=== PATIENT | male | born 1980 | race American Indian/Alaskan Native ===

== ENCOUNTER 2017-07-22 12:14 | Emergency (ER) | payer SELFPAY ==
[2017-07-22 12:14] VITALS: BMI 23.3
[2017-07-22 12:27] VITALS: PULSE 67; RESP 20; TEMP 98; O2SAT 97
[2017-07-22] MEDS ORDERED: Albuterol-Ipratrop 3 mg / 0.5 (3 ml) UD INH STA (12:34)
--- NOTE | 2017-07-22 12:53 | ED PDOC ---
HPI: SOB/CHF/COPD Time Seen by Provider: 07/22/17 12:15 Chief Complaint (Nursing): Shortness Of Breath Chief Complaint (Provider): Shortness Of Breath History Per: Patient History/Exam Limitations: no limitations Onset/Duration Of Symptoms: Persistent (x6 months), Worse Since (x2) Current Symptoms Are (Timing): Still Present Additional Complaint(s): 36 year old male presents to the emergency department with a complaint of shortness of breath associated with sore throat ongoing for 6 months but worsening in the last 2 days. He denied any fever or chills. Patient stated that he believes symptoms are related to his occupation due to dust exposure. PMD: none provided Past Medical History Reviewed: Historical Data, Nursing Documentation, Vital Signs Vital Signs: Last Vital Signs Temp 98 F 07/22/17 12:23 Pulse 67 07/22/17 12:23 Resp 20 07/22/17 12:23 BP 107/71 07/22/17 13:43 Pulse Ox 97 07/22/17 13:41 - Medical History PMH: No Chronic Diseases - Surgical History Surgical History: No Surg Hx - Family History Family History: States: Unknown Family Hx - Social History Current smoker - smoking cessation education provided: Yes Alcohol: None Drugs: Cannabis - Immunization History Hx Tetanus Toxoid Vaccination: Yes Hx Influenza Vaccination: Yes Hx Pneumococcal Vaccination: No - Home Medications Home Medications: Ambulatory Orders Medication Instructions Recorded Amoxicillin 500 mg PO TID #21 cap 05/16/13 Ibuprofen [Motrin] 600 mg PO Q6 PRN #15 tab 05/16/13 Albuterol HFA [Ventolin HFA 90 2 puff IH [id number] PRN #1 in 07/22/17 mcg/actuation (8 g)] - Allergies Allergies/Adverse Reactions: Allergies Allergy/AdvReac Type Severity Reaction Status Date / Time No Known Allergies Allergy Verified 07/22/17 12:23 Review of Systems ROS Statement: Except As Marked, All Systems Reviewed And Found Negative Constitutional: Negative for: Fever, Chills ENT: Positive for: Throat Pain Respiratory: Positive for: Shortness of Breath. Negative for: Hemoptysis Physical Exam - Reviewed Nursing Documentation Reviewed: Yes Vital Signs Reviewed: Yes - Physical Exam Appears: Positive for: Well, Non-toxic, No Acute Distress Cardiovascular/Chest: Positive for: Regular Rate, Rhythm, Chest Non Tender Respiratory: Positive for: Normal Breath Sounds. Negative for: Decreased Breath Sounds, Accessory Muscle Use, Crackles, Rales, Rhonchi, Wheezing, Respiratory Distress Neurologic/Psych: Positive for: Alert (x3), Oriented - ECG O2 Sat by Pulse Oximetry: 97 (RA) Pulse Ox Interpretation: Normal - Progress ED Course And Treament: cxr: nad PEak flow pre treatment 210 duoneb x 1 dose PEAK flow post treatment 300 Feels improved. We will prescribe albuterol inhaler to assist with symptoms. Advised f/u with pulmonology for further evaluation of symptoms. Medical Decision Making Medical Decision Making: Initial Impression: Shortness of breath Initial Plan: * CXR * Duoneb 3ml INH * Peak flow pre/post TX Scribe Attestation: Documented by Latasha Whittaker, acting as a scribe for Juan Be PA-C. Provider Scribe Attestation: All medical record entries made by the Scribe were at my direction and personally dictated by me. I have reviewed the chart and agree that the record accurately reflects my personal performance of the history, physical exam, medical decision making, and the department course for this patient. I have also personally directed, reviewed, and agree with the discharge instructions and disposition. Disposition - Clinical Impression Clinical Impression: Difficulty breathing - Patient ED Disposition Is Patient to be Admitted: No - Disposition Referrals: Joel Burden MD [Staff Provider] - Disposition: Routine/Home Disposition Time: 13:40 Condition: FAIR Prescriptions: Albuterol HFA [Ventolin HFA 90 mcg/actuation (8 g)] 2 puff IH [id number] PRN #1 in PRN Reason: Shortness Of Breath Instructions: Shortness of Breath (Dyspnea) (DC) Forms: [employer] (Frisian), [facility] ED School/Work Excuse
[2017-07-22 13:43] VITALS: BP 107/71
--- NOTE | 2017-07-22 16:25 | RAD ---
HISTORY: sob COMPARISON: No prior. TECHNIQUE: Chest PA and lateral FINDINGS: LUNGS: No active pulmonary disease. PLEURA: No significant pleural effusion identified. No pneumothorax apparent. CARDIOVASCULAR: Normal. OSSEOUS STRUCTURES: No significant abnormalities. VISUALIZED UPPER ABDOMEN: Normal. OTHER FINDINGS: None. IMPRESSION: No active disease.
== END 2017-07-22 14:12 | disposition home or self-care (01) ==
LOC: H.ER 12:14
DX: R06.03 Acute respiratory distress (principal); F17.200 Nicotine dependence, unspecified, uncomplicated

== ENCOUNTER 2017-11-27 12:24 | Emergency (ER) | payer OTHER ==
[2017-11-27 12:24] VITALS: BMI 23.3
[2017-11-27 12:39] VITALS: BP 102/61; PULSE 70; RESP 16; TEMP 98.3; O2SAT 98
--- NOTE | 2017-11-27 12:57 | ED PDOC ---
HPI: Back Time Seen by Provider: 11/27/17 12:30 Chief Complaint (Nursing): Back Pain Chief Complaint (Provider): Back Pain History Per: Patient History/Exam Limitations: no limitations Onset/Duration Of Symptoms: Hrs Current Symptoms Are (Timing): Still Present Associated Symptoms: None Additional Complaint(s): 37 y/o male with no significant PMHx presents to the ED complaining of back pain , onset last night. Patient states he constantly works the muscles in the affected area. Patient reports he was going to go to work today but didn't due to back pain. Denies numbness, tingling, incontinence. PMD: No Provider Past Medical History Reviewed: Historical Data, Nursing Documentation, Vital Signs Vital Signs: Last Vital Signs Temp 98.3 F 11/27/17 12:35 Pulse 70 11/27/17 12:35 Resp 16 11/27/17 12:35 BP 102/61 11/27/17 12:35 Pulse Ox 98 11/27/17 12:35 - Medical History PMH: No Chronic Diseases - Surgical History Surgical History: No Surg Hx - Family History Family History: States: Unknown Family Hx - Immunization History Hx Tetanus Toxoid Vaccination: Yes Hx Influenza Vaccination: Yes Hx Pneumococcal Vaccination: No - Home Medications Home Medications: Ambulatory Orders Medication Instructions Recorded Amoxicillin 500 mg PO TID #21 cap 05/16/13 Ibuprofen [Motrin] 600 mg PO Q6 PRN #15 tab 05/16/13 Albuterol HFA [Ventolin HFA 90 2 puff IH [id number] PRN #1 in 07/22/17 mcg/actuation (8 g)] Cyclobenzaprine [Cyclobenzaprine 10 mg PO Q8H PRN #12 tab 11/27/17 HCl] Ibuprofen [Motrin Tab] 800 mg PO Q6H PRN #20 tab 11/27/17 - Allergies Allergies/Adverse Reactions: Allergies Allergy/AdvReac Type Severity Reaction Status Date / Time No Known Allergies Allergy Verified 11/27/17 12:35 Review of Systems ROS Statement: Except As Marked, All Systems Reviewed And Found Negative Genitourinary Male: Negative for: Incontinence Musculoskeletal: Positive for: Back Pain Neurological: Negative for: Weakness, Numbness Physical Exam - Reviewed Nursing Documentation Reviewed: Yes Vital Signs Reviewed: Yes - Physical Exam Appears: Positive for: Non-toxic, No Acute Distress Head Exam: Positive for: ATRAUMATIC Skin: Positive for: Normal Color, Warm Eye Exam: Positive for: Normal appearance ENT: Positive for: Normal ENT Inspection Neck: Positive for: Normal Cardiovascular/Chest: Negative for: Bradycardia, Tachycardia Respiratory: Negative for: Accessory Muscle Use, Respiratory Distress Back: Positive for: Normal Inspection, Other (Paraspinal Muscle Tenderness) Extremity: Positive for: Normal ROM. Negative for: Deformity Neurologic/Psych: Positive for: Alert, Oriented - ECG O2 Sat by Pulse Oximetry: 98 (RA) Pulse Ox Interpretation: Normal Medical Decision Making Medical Decision Making: Time: 1255 Plan: -- Motrin 600 mg PO -- Patient is requesting no pain medications except Motrin at this time. Scribe Attestation: Documented by Tomas Gomez, acting as a scribe for Desiree Truong PA-C. Provider Scribe Attestation: All medical record entries made by the Scribe were at my direction and personally dictated by me. I have reviewed the chart and agree that the record accurately reflects my personal performance of the history, physical exam, medical decision making, and the department course for this patient. I have also personally directed, reviewed, and agree with the discharge instructions and disposition. Disposition - Clinical Impression Clinical Impression: Back pain - Disposition Disposition: Routine/Home Disposition Time: 12:50 Condition: STABLE Prescriptions: Cyclobenzaprine [Cyclobenzaprine HCl] 10 mg PO Q8H PRN #12 tab PRN Reason: Muscle Spasm Ibuprofen [Motrin Tab] 800 mg PO Q6H PRN #20 tab PRN Reason: Pain Instructions: Low Back Pain in Adults Forms: [employer] [facility] (Mohawk), [facility] ED School/Work Excuse
== END 2017-11-27 13:08 | disposition home or self-care (01) ==
LOC: H.ER 12:24
DX: M54.9 Dorsalgia, unspecified (principal)

== ENCOUNTER 2018-08-11 09:08 | Emergency (ER) | payer OTHER ==
[2018-08-11 09:08] VITALS: BMI 23.3
--- NOTE | 2018-08-11 10:10 | ED PDOC ---
Lower Extremity Pain/Injury Time Seen by Provider: 08/11/18 09:36 Chief Complaint (Nursing): Lower Extremity Problem/Injury Chief Complaint (Provider): Buttock pain History Per: Patient History/Exam Limitations: no limitations Additional Complaint(s): Pt reports L buttock pain radiating down L leg X 5 days, intermittent, worse when on feet all day at work, better with rest. Did not take any medication at home. Denies trauma, paresthesias, weakness. Past Medical History Reviewed: Nursing Documentation, Vital Signs - Medical History PMH: No Chronic Diseases - Surgical History Surgical History: No Surg Hx - Family History Family History: States: Unknown Family Hx - Social History Current smoker - smoking cessation education provided: Yes Alcohol: None - Immunization History Hx Tetanus Toxoid Vaccination: Yes Hx Influenza Vaccination: Yes Hx Pneumococcal Vaccination: No - Home Medications Home Medications: Ambulatory Orders Medication Instructions Recorded Amoxicillin 500 mg PO TID #21 cap 05/16/13 Ibuprofen [Motrin] 600 mg PO Q6 PRN #15 tab 05/16/13 Albuterol HFA [Ventolin HFA 90 2 puff IH [id number] PRN #1 in 07/22/17 mcg/actuation (8 g)] Cyclobenzaprine [Cyclobenzaprine 10 mg PO Q8H PRN #12 tab 11/27/17 HCl] Ibuprofen [Motrin Tab] 800 mg PO Q6H PRN #20 tab 11/27/17 Ibuprofen [Motrin] 600 mg PO Q6H PRN #20 tab 08/11/18 - Allergies Allergies/Adverse Reactions: Allergies Allergy/AdvReac Type Severity Reaction Status Date / Time No Known Allergies Allergy Verified 11/27/17 12:35 Review of Systems Constitutional: Negative for: Fever, Chills Musculoskeletal: Positive for: Leg Pain. Negative for: Back Pain Skin: Negative for: Rash, Lesions Neurological: Negative for: Weakness, Numbness Physical Exam - Reviewed Nursing Documentation Reviewed: Yes Vital Signs Reviewed: Yes - Physical Exam Appears: Positive for: Well, No Acute Distress Head Exam: Positive for: ATRAUMATIC, NORMAL INSPECTION Skin: Positive for: Normal Color, Warm, Dry Eye Exam: Positive for: Normal appearance, EOMI, PERRL Back: Positive for: Normal Inspection. Negative for: R CVA Tenderness Extremity: Positive for: Normal ROM, Tenderness (Minimal L lateral buttock), Other (+2 DP pulse). Negative for: Pedal Edema, Calf Tenderness, Deformity, Swelling Neurological/Psych: Positive for: Awake, Alert, Oriented. Negative for: Motor/Sensory Deficits Medical Decision Making Medical Decision Makin yo male with atraumatic L buttock pain. - XR L hip - Motrin Accession No. : [id number] Patient Name / ID : ANAM MELCHOR / [id number] Exam Date : 08/11/2018 10:14:21 ( Approved ) Study Comment : Sex / Age : M / [id number] Creator : Lauren Paiz MD Dictator : Lauren Paiz MD Field Engineer : Stretch Box Tender : Lauren Paiz MD Approver2 : Report Date : 08/11/2018 11:07:07 My Comment : PROCEDURE: Left Hip X-ray Radiographs. HISTORY: L hip/buttock pain COMPARISON: None. TECHNIQUE: 2 views obtained. FINDINGS: BONES: The pelvic ring is intact. There is no acute displaced fracture or bone destruction. Bone alignment is normal. Bone mineralization is normal. JOINTS: Normal. SOFT TISSUES: Normal. OTHER FINDINGS: None. IMPRESSION: No acute fracture or dislocation. No evidence of significant degenerative osteoarthrosis or radiographic evidence for avascular necrosis. There is a persistent clinical concern, correlation with MRI may be performed. Disposition - Clinical Impression Clinical Impression: Buttock pain - Disposition Referrals: [facility] [Outside] Disposition: Routine/Home Disposition Time: 10:52 Condition: IMPROVED Prescriptions: Ibuprofen [Motrin] 600 mg PO Q6H PRN #20 tab PRN Reason: Pain, Moderate (4-7) Instructions: Muscle and Bone Pain (DC) Forms: [employer] ([place]), [facility] ED School/Work Excuse
[2018-08-11 10:11] VITALS: BP 103/59; PULSE 59; RESP 18; TEMP 97.7; O2SAT 99
--- NOTE | 2018-08-11 11:10 | RAD ---
PROCEDURE: Left Hip X-ray Radiographs. HISTORY: L hip/buttock pain COMPARISON: None. TECHNIQUE: 2 views obtained. FINDINGS: BONES: The pelvic ring is intact. There is no acute displaced fracture or bone destruction. Bone alignment is normal. Bone mineralization is normal. JOINTS: Normal. SOFT TISSUES: Normal. OTHER FINDINGS: None. IMPRESSION: No acute fracture or dislocation. No evidence of significant degenerative osteoarthrosis or radiographic evidence for avascular necrosis. There is a persistent clinical concern, correlation with MRI may be performed.
== END 2018-08-11 11:06 | disposition home or self-care (01) ==
LOC: H.ER 09:08
DX: R52 Pain, unspecified (principal)

== ENCOUNTER 2018-08-18 10:18 | Emergency (ER) | payer OTHER ==
[2018-08-18 10:27] VITALS: BP 111/71; PULSE 72; RESP 16; TEMP 98.2; O2SAT 97; BMI 23.6
--- NOTE | 2018-08-18 10:45 | ED PDOC ---
HPI: General Adult Time Seen by Provider: 08/18/18 10:40 Chief Complaint (Nursing): Lower Extremity Problem/Injury Chief Complaint (Provider): left leg pain ongoing History Per: Patient (37 y/o male here with left leg pain ongoing. States he does a lot of heavy lifting at work. Was unable to go to work yesterday and requests work note. Has not taken any medications.) Past Medical History Reviewed: Historical Data, Nursing Documentation, Vital Signs Vital Signs: Last Vital Signs Temp 98.2 F 08/18/18 10:26 Pulse 72 08/18/18 10:26 Resp 16 08/18/18 10:26 BP 111/71 08/18/18 10:26 Pulse Ox 97 08/18/18 10:26 - Family History Family History: States: Unknown Family Hx - Immunization History Hx Tetanus Toxoid Vaccination: Yes Hx Influenza Vaccination: Yes Hx Pneumococcal Vaccination: No - Home Medications Home Medications: Ambulatory Orders Medication Instructions Recorded Amoxicillin 500 mg PO TID #21 cap 05/16/13 Ibuprofen [Motrin] 600 mg PO Q6 PRN #15 tab 05/16/13 Albuterol HFA [Ventolin HFA 90 2 puff IH [id number] PRN #1 in 07/22/17 mcg/actuation (8 g)] Cyclobenzaprine [Cyclobenzaprine 10 mg PO Q8H PRN #12 tab 11/27/17 HCl] Ibuprofen [Motrin Tab] 800 mg PO Q6H PRN #20 tab 11/27/17 Ibuprofen [Motrin] 600 mg PO Q6H PRN #20 tab 08/11/18 Naproxen 375 mg PO TID PRN #21 tablet 08/18/18 - Allergies Allergies/Adverse Reactions: Allergies Allergy/AdvReac Type Severity Reaction Status Date / Time No Known Allergies Allergy Verified 11/27/17 12:35 Review of Systems ROS Statement: Except As Marked, All Systems Reviewed And Found Negative Physical Exam - Reviewed Nursing Documentation Reviewed: Yes Vital Signs Reviewed: Yes - Physical Exam Appears: Positive for: Well, Non-toxic, No Acute Distress Head Exam: Positive for: ATRAUMATIC, NORMAL INSPECTION, NORMOCEPHALIC Skin: Positive for: Normal Color, Warm, DRY Eye Exam: Positive for: EOMI, Normal appearance, PERRL ENT: Positive for: Normal ENT Inspection Neck: Positive for: Normal, Painless ROM Cardiovascular/Chest: Positive for: Regular Rate, Rhythm Respiratory: Positive for: CNT, Normal Breath Sounds Gastrointestinal/Abdominal: Positive for: Normal Exam, Soft Back: Positive for: Normal Inspection Extremity: Positive for: Normal ROM, Other (no obvious rash; left leg posterior pain.) Neurological/Psych: Positive for: Awake, Alert, Normal Tone - ECG O2 Sat by Pulse Oximetry: 97 Disposition - Clinical Impression Clinical Impression: Sciatica - Patient ED Disposition Is Patient to be Admitted: No - Disposition Referrals: [facility] [Outside] Disposition: Routine/Home Disposition Time: 10:45 Condition: FAIR Prescriptions: Naproxen 375 mg PO TID PRN #21 tablet PRN Reason: Pain, Moderate (4-7) Instructions: Sciatica (DC) Forms: [facility] ED School/Work Excuse
== END 2018-08-18 11:03 | disposition home or self-care (01) ==
LOC: H.ER 10:18
DX: M54.30 Sciatica, unspecified side (principal)

== ENCOUNTER 2018-09-14 10:13 | Emergency (ER) | payer OTHER ==
[2018-09-14 10:18] VITALS: BP 111/61; PULSE 66; RESP 16; TEMP 97.6; O2SAT 99
[2018-09-14 10:32] VITALS: BMI 23.3
--- NOTE | 2018-09-14 10:38 | ED PDOC ---
HPI: Back Time Seen by Provider: 09/14/18 10:22 Chief Complaint (Nursing): Back Pain Chief Complaint (Provider): back pain History Per: Patient History/Exam Limitations: no limitations Onset/Duration Of Symptoms: Hrs Current Symptoms Are (Timing): Still Present Quality Of Discomfort: "Pain" Severity: Moderate Pain Scale Rating Of: 6 Previous Symptoms: Back Pain Associated Symptoms: None Exacerbating Factor(s): Turning, Movement Additional History Per: Patient Additional Complaint(s): 37 year old male with no medical history resents to the emergency room c/o left sided mid back pain since 8:45 this am after lifting a 25lbs night stand while at work. Patient states pain worse when he attempts to turn to the left. Patient denies urinary complaints, fever, nausea, vomiting. Patient has a history of back spasms in the past. Pain is non-radiating as per patient. Past Medical History Reviewed: Historical Data, Nursing Documentation, Vital Signs Vital Signs: Last Vital Signs Temp 97.6 F 09/14/18 10:18 Pulse 66 09/14/18 10:18 Resp 16 09/14/18 10:18 BP 111/61 09/14/18 10:18 Pulse Ox 99 09/14/18 10:18 Primary Care Provider: Non [facility] Provider, - Surgical History Surgical History: No Surg Hx - Family History Family History: States: Unknown Family Hx - Social History Alcohol: None Drugs: Denies - Immunization History Hx Tetanus Toxoid Vaccination: Yes Hx Influenza Vaccination: Yes Hx Pneumococcal Vaccination: No - Home Medications Home Medications: Ambulatory Orders Medication Instructions Recorded Amoxicillin 500 mg PO TID #21 cap 05/16/13 Ibuprofen [Motrin] 600 mg PO Q6 PRN #15 tab 05/16/13 Albuterol HFA [Ventolin HFA 90 2 puff IH [id number] PRN #1 in 07/22/17 mcg/actuation (8 g)] Cyclobenzaprine [Cyclobenzaprine 10 mg PO Q8H PRN #12 tab 11/27/17 HCl] Ibuprofen [Motrin Tab] 800 mg PO Q6H PRN #20 tab 11/27/17 Ibuprofen [Motrin] 600 mg PO Q6H PRN #20 tab 08/11/18 Naproxen 375 mg PO TID PRN #21 tablet 08/18/18 Cyclobenzaprine [Cyclobenzaprine 10 mg PO Q8H PRN #15 tab 09/14/18 HCl] Ibuprofen [Motrin] 600 mg PO Q8H PRN #30 tab 09/14/18 - Allergies Allergies/Adverse Reactions: Allergies Allergy/AdvReac Type Severity Reaction Status Date / Time No Known Allergies Allergy Verified 11/27/17 12:35 Review of Systems ROS Statement: Except As Marked, All Systems Reviewed And Found Negative Constitutional: Negative for: Fever, Chills, Sweats, Weakness, Malaise Cardiovascular: Negative for: Chest Pain, Palpitations, Light Headedness Respiratory: Negative for: Cough, Pleuritic Pain, Wheezing Gastrointestinal: Negative for: Nausea, Vomiting, Abdominal Pain Genitourinary Male: Negative for: Dysuria, Hematuria Musculoskeletal: Positive for: Back Pain (left mid back pain) Physical Exam - Reviewed Nursing Documentation Reviewed: Yes Vital Signs Reviewed: Yes - Physical Exam Appears: Positive for: Well, Non-toxic, No Acute Distress Head Exam: Positive for: ATRAUMATIC, NORMAL INSPECTION, NORMOCEPHALIC Skin: Positive for: Normal Color, Warm, DRY Eye Exam: Positive for: EOMI, Normal appearance, PERRL ENT: Positive for: Normal ENT Inspection Neck: Positive for: Normal, Painless ROM, Supple Cardiovascular/Chest: Positive for: Regular Rate, Rhythm, Chest Non Tender Respiratory: Positive for: CNT, Normal Breath Sounds Pulses-Radial (L): 2+ Pulses-Radial (R): 2+ Gastrointestinal/Abdominal: Positive for: Normal Exam, Soft Back: Positive for: Normal Inspection Rectal: Positive for: Deferred Extremity: Positive for: Normal ROM Neurological/Psych: Positive for: Awake, Alert, Normal Tone, Oriented - ECG O2 Sat by Pulse Oximetry: 99 Medical Decision Making Medical Decision Making: flexeril toradol re-assess Patient stable for D/C home. Rx given for motrin and flexeril patient instructed not to drive or operate heavy machinery while taking muscle relaxers. Patient educated on non-pharmacological and pharmacological therapies for home. Patient states understanding and agrees with plan. Disposition - Clinical Impression Clinical Impression: Back strain - Patient ED Disposition Is Patient to be Admitted: No Counseled Patient/Family Regarding: Diagnosis, Rx Given - Disposition Disposition: Routine/Home Disposition Time: 11:30 Condition: IMPROVED Prescriptions: Cyclobenzaprine [Cyclobenzaprine HCl] 10 mg PO Q8H PRN #15 tab PRN Reason: Muscle Spasm Ibuprofen [Motrin] 600 mg PO Q8H PRN #30 tab PRN Reason: Pain, Moderate (4-7) Instructions: Low Back Pain in Adults, Back Exercises Forms: [employer] (Armenian), [facility] ED School/Work Excuse - POA Present On Arrival: None
== END 2018-09-14 11:48 | disposition home or self-care (01) ==
LOC: H.ER 10:13
DX: S39.012A Strain of muscle, fascia and tendon of lower back, initial encounter (principal); X58.XXXA Exposure to other specified factors, initial encounter
CPT/HCPCS: 96372; 99283; J1885